=== PATIENT | female | born 1975 | race Native Hawaiian/Other Pacific Islander ===

== ENCOUNTER 2018-03-11 15:21 | Emergency (ER) | payer OTHER, BC ==
[2018-03-11 15:33] VITALS: RESP 18; TEMP 98.2
--- NOTE | 2018-03-11 16:59 | ED PDOC ---
HPI: Headache Time Seen by Provider: 03/11/18 16:50 Chief Complaint (Nursing): Headache Chief Complaint (Provider): headache History Per: Patient History/Exam Limitations: no limitations Onset/Duration Of Symptoms: Other (x 2 weeks) Current Symptoms Are (Timing): Still Present Severity: Severe Pain Scale Rating Of: 10 Quality: Sharp, Tightness Preceeding Symptoms: None Associated Symptoms: denies: Photophobia Additional History Per: Patient Additional Complaint(s): 42-year-old female arrived to ED with diffuse mostly frontal headache associated with 2 episodes of vomiting while at work today. For the past 2 weeks , pt reports nasal congestion, constant coughing, general malaise and discomfort /general unease feeling. Pt reports she tried advil this afternoon without any relief of headache. States her usual headaches are not as severe and would resolve with OTC medications. Usually rated 5 out of 10. pt state her headache today was rated at 10/10 pt denied photophobia; no neck pain pt denied fall/trauma/sick contact, no travel (-) fever, (-) chills, (-) sweats, (-) chest pain, (-) shortness of breath, (-) palpitations, (-) abdominal pain), (-) numbness, (-) tingling, (-) bowel changes , (-) sick contacts, (-) falls. Patient arrived to ED for further evaluation. pt without other complaints PMD: Ezequiel Tirado pt is right hand dominate PMHx: HTN NIHSS Stroke Scale - Date/Time Evaluation Performed Date Performed: 03/11/18 Time Performed: 16:50 When Was NIHSS Performed: Baseline - How Severe is the Stroke Level of Consciousness: 0=Alert LOC to Questions: 0=Both comments correct LOC to commands: 0=Obeys both correctly Best Gaze: 0=Normal Visual: 0=No visual loss Facial: 0=Normal Motor Arm - Left: 0=No drift Motor Arm - Right: 0=No drift Motor Leg - Left: 0=No drift Motor Leg - Right: 0=No drift Limb Ataxia: 0=Absent Sensory: 0=Normal Best Language: 0=No aphasia Dysarthia: 0=Normal articulation Extinction & Inattention (Neglect): 0=Normal, no object Score: 0 Past Medical History Reviewed: Historical Data, Nursing Documentation, Vital Signs Vital Signs: Last Vital Signs Temp 98.2 F 03/11/18 15:30 Pulse 65 03/11/18 15:30 Resp 18 03/11/18 15:30 BP 169/84 H 03/11/18 15:30 Pulse Ox 100 03/11/18 15:30 - Medical History PMH: HTN - Family History Family History: States: No Known Family Hx - Social History Current smoker - smoking cessation education provided: No Ex-Smoker (has not smoked in the last 12 months): No Alcohol: None Drugs: Denies - Home Medications Home Medications: Ambulatory Orders Medication Instructions Recorded Naproxen 375 mg PO Q8 PRN #21 tab 07/07/15 diaZEpam [Valium] 5 mg PO Q6 PRN #14 tab 07/07/15 Ibuprofen [Motrin] 600 mg PO QID PRN #30 tab 03/11/18 Metoclopramide [Reglan] 10 mg PO TID PRN #30 tab 03/11/18 - Allergies Allergies/Adverse Reactions: Allergies Allergy/AdvReac Type Severity Reaction Status Date / Time No Known Allergies Allergy Verified 03/11/18 15:29 Review of Systems ROS Statement: Except As Marked, All Systems Reviewed And Found Negative Constitutional: Positive for: Malaise (general), Other (discomfort). Negative for: Fever, Chills, Sweats ENT: Positive for: Nose Congestion Cardiovascular: Negative for: Chest Pain, Palpitations Respiratory: Positive for: Cough (constant). Negative for: Shortness of Breath , SOB with Exertion Gastrointestinal: Positive for: Vomiting. Negative for: Abdominal Pain, Other ( bowel changes) Musculoskeletal: Negative for: Neck Pain, Shoulder Pain, Back Pain Skin: Negative for: Rash Neurological: Positive for: Headache. Negative for: Numbness, Other (tingling) Physical Exam - Reviewed Nursing Documentation Reviewed: Yes Vital Signs Reviewed: Yes (WNL) - Physical Exam Appears: Positive for: Well, Non-toxic, No Acute Distress (Pt is resting in bed. Pt is following commands at ease; cooperative; alert/awake, GCS = 15, oriented x 3), Uncomfortable Head Exam: Positive for: ATRAUMATIC, NORMAL INSPECTION, NORMOCEPHALIC Skin: Positive for: Normal Color (cap refill < 1sec, no ulcerations, no petechiae, no rashes), Warm, Dry. Negative for: Diaphoresis Eye Exam: Positive for: Normal appearance, EOMI, PERRL, Other (no photophobia, sclera anicteric). Negative for: Nystagmus ENT: Positive for: Normal ENT Inspection Neck: Positive for: Normal (no meningeal signs, no nuchal rigidity, no step off) , Painless ROM, Supple, Trachea Midline Cardiovascular/Chest: Positive for: Regular Rate, Rhythm, Chest Non Tender, Other (+S1, +S2). Negative for: Murmur Respiratory: Positive for: Normal Breath Sounds, Other (CTA b/l, no w/r/r, no tachypenia). Negative for: Respiratory Distress Gastrointestinal/Abdominal: Positive for: Normal Exam, Bowel Sounds, Soft. Negative for: Tenderness Back: Positive for: Normal Inspection. Negative for: Vertebral Tenderness Extremity: Positive for: Normal ROM, Other (moving all limbs with ease). Negative for: Deformity Neurologic/Psych: Positive for: Alert, senior telecommunications consultant II-XII, Oriented (x 3), Motor/ Sensory Deficits, Mood/Affect (Cooperative ) - Laboratory Results Result Diagrams: 03/11/18 17:25 03/11/18 17:25 Interpretation Of Abnormal: LOW K - ECG ECG: Positive for: Interpreted By Me, Viewed By Me Interpretation Of ECG: Sinus rhythm at 70 bpm, with 1st degree av block, normal axis, no ectopy, no st- t changes, BORDERLINE EKG; no old ekg to compare with O2 Sat by Pulse Oximetry: 100 (RA) Pulse Ox Interpretation: Normal - Radiology X-Ray: Interpreted by Me, Viewed By Me, Read By Radiologist - Progress ED Course And Treament: Time: 17:46 CT Head without IV Contrast FINDINGS: HEMORRHAGE: No intracranial hemorrhage. BRAIN: Villagran-white matter differentiation is preserved. There is no mass, mass effect or abnormal extra-axial fluid collection. There is no territorial infarction. VENTRICLES: The ventricles are normal in size, shape and configuration. CALVARIUM: The skull base and calvarium are normal. PARANASAL SINUSES: There is chronic ethmoid sinusitis, the remaining included paranasal sinuses are predominantly clear. MASTOID AIR CELLS: Predominantly clear. OTHER FINDINGS: None. IMPRESSION: No acute intracranial abnormality. Time: 18:15 Pt reports headache improved. Rated 5 out of 10. Pt is awaiting diagnostic results. Time: 18:53 Pt reports feeling much better. Patient is made aware of hermedical results Patient is encouraged to eat bananas and leafy greens to boost potassium levels Patient expressed understanding Patient encouraged to follow up with PCP Re-evaluation Time: 18:00 Condition: Improved Medical Decision Making Medical Decision Making: Time: 16:53 Impression(s): Atraumatic headache likely vascular cause of headache. i.e. tension, non-specific headache. Unlikely meningitis, subdural hematoma Plan: - CT Head w/o Contrast - EKG - CMP - CBC - Erythrocyte Sedimentation Rate - Sodium Chloride 09% 1,000 ml IV 250 mls/hr - Reglan 10 mg IVP - Toradol 30 mg IM - UA Scribe Attestation: Documented by Palomo Zepeda, acting as a scribe for Liam Kelley MD. Provider Scribe Attestation: All medical record entries made by the Scribe were at my direction and personally dictated by me. I have reviewed the chart and agree that the record accurately reflects my personal performance of the history, physical exam, medical decision making, and the department course for this patient. I have also personally directed, reviewed, and agree with the discharge instructions and disposition. Disposition - Clinical Impression Clinical Impression: Headache, Hypokalemia, Dehydration - Patient ED Disposition Is Patient to be Admitted: No Counseled Patient/Family Regarding: Studies Performed, Diagnosis, Need For Followup, Rx Given - Disposition Referrals: [facility] [Outside] [facility] [place] [Outside] [facility] [place] [Outside] Domenico Bruce MD [Medical Doctor] - PCP,NO [Non-Staff] - Disposition: Routine/Home Disposition Time: 18:53 Condition: STABLE Additional Instructions: Make sure to see your doctor in 1-2 days DRINK PLENTY OF FLUIDS take your medications as prescribed Please eat extra bananas and/or leafy greens RETURN TO ED IF worse pain, cant breath, persistent vomiting, high fever >101- 102 for hours, altered behavior, slurr speech, facial changes, focal weakness ( arm/leg or both), unable to urinate, heavy/persistent bleeding, passing out, chest pain, or other medical emergencies Prescriptions: Ibuprofen [Motrin] 600 mg PO QID PRN #30 tab PRN Reason: Pain, Mild (1-3) Metoclopramide [Reglan] 10 mg PO TID PRN #30 tab PRN Reason: Nausea/Vomiting Instructions: Hypokalemia, Headache, Adult, Dehydration, Adult (DC) Forms: [facility] (Citizen [place]), [facility] ED School/Work Excuse Print Language: MONGOLIAN
[2018-03-11] MEDS ORDERED: Sodium Chloride 0.9% 1,000 ML IV ONE (17:00)
[2018-03-11 17:30] VITALS: PULSE 70
[2018-03-11 17:31] LABS: BASO % 0.3 % (0.0-2.0); EOS # 0.1 K/uL (0.0-0.7); EOS % 1.1 % (0.0-4.0); HEMOGLOBIN 10.2 g/dL (12.0-16.0); LYMPH # 1.6 K/uL (1.0-4.3); LYMPH % 20.4 % (20.0-40.0); MEAN CELL VOLUME 74.5 fl (81.0-99.0); MEAN CORPUSCULAR HGB CONC 32.2 g/dL (33.0-37.0); MEAN PLATELET VOLUME 11.2 fl (7.2-11.7); MONO # 0.3 K/uL (0.0-0.8); MONO % 3.5 % (0.0-10.0); NEUT # 5.9 K/uL (1.8-7.0); NEUT % 74.7 % (50.0-75.0); RBC 4.24 Mil/uL (3.80-5.20); RED CELL DISTRIBUTION WIDTH 16.7 % (11.5-14.5); WHITE BLOOD COUNT 7.9 K/uL (4.8-10.8)
[2018-03-11 17:40] LABS: ALBUMIN 4.1 g/dL (3.5-5.0); ALT/SGPT 32 U/L (9-52); AST/SGOT 25 U/L (14-36); BLOOD UREA NITROGEN 16 mg/dl (7-17); CALCIUM 8.4 mg/dL (8.4-10.2); GFR AFRICAN-AMERICAN > 60; GFR NON-AFRICAN AMERICAN > 60
--- NOTE | 2018-03-11 17:47 | CT ---
PROCEDURE: CT HEAD WITHOUT CONTRAST. HISTORY: frontal headache, no trauma COMPARISON: None available. TECHNIQUE: Axial computed tomography images were obtained through the head/brain without intravenous contrast. Radiation dose: Total exam DLP = 674.48 mGy-cm. This CT exam was performed using one or more of the following dose reduction techniques: Automated exposure control, adjustment of the mA and/or kV according to patient size, and/or use of iterative reconstruction technique. FINDINGS: HEMORRHAGE: No intracranial hemorrhage. BRAIN: Villagran-white matter differentiation is preserved. There is no mass, mass effect or abnormal extra-axial fluid collection. There is no territorial infarction. VENTRICLES: The ventricles are normal in size, shape and configuration. CALVARIUM: The skull base and calvarium are normal. PARANASAL SINUSES: There is chronic ethmoid sinusitis, the remaining included paranasal sinuses are predominantly clear. MASTOID AIR CELLS: Predominantly clear. OTHER FINDINGS: None. IMPRESSION: No acute intracranial abnormality.
[2018-03-11 17:54] LABS: URINE BILIRUBIN NEGATIVE (NEGATIVE); URINE BLOOD LARGE (NEGATIVE); URINE CLARITY TURBID (Clear); URINE COLOR RED (YELLOW); URINE GLUCOSE (UA) NEG (Normal); URINE LEUKOCYTE ESTERASE NEG Leu/uL (Negative); URINE PROTEIN 100 mg/dL (NEGATIVE); URINE UROBILINOGEN 0.2-1.0 mg/dL (0.2-1.0)
[2018-03-11] MEDS ORDERED: Potassium Chloride 20 mEq ER Tab PO ONE ×2 (18:42→19:29)
[2018-03-11 19:34] VITALS: BP 118/78
[2018-03-11 20:00] VITALS: O2SAT 100
--- NOTE | 2018-03-12 10:57 | CARD ---
APPROVED REPORT EKG Measurement Heart [id number] <Conclusion> Sinus rhythm with 1st degree AV block Otherwise normal ECG
== END 2018-03-11 19:34 | disposition home or self-care (01) ==
LOC: H.ER 15:21
DX: R51 Headache (principal); E87.6 Hypokalemia; E86.0 Dehydration; I10 Essential (primary) hypertension; Z86.73 Personal history of transient ischemic attack (TIA), and cerebral infarction without residual deficits; Z87.891 Personal history of nicotine dependence
CPT/HCPCS: 70450; 80053; 81003; 81025; 85025; 85651; 93005; 96372; 99284; J1885; J7040